=== PATIENT | female | born 1965 | race American Indian/Alaskan Native ===

== ENCOUNTER 2019-02-18 06:31 | Day surgery (SDC) | payer OTHER ==
[2019-02-18] MEDS ORDERED: NACL 0.9% 1000 ML 1,000 ML IV SCH (07:00)
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
--- NOTE | 2019-02-18 08:07 | Anesthesia Day of Surgery ---
Anesthesia Day of Surgery - Day of Surgery Patient Examined: Yes Patient H&P Reviewed: Yes Patient is NPO: Yes
[2019-02-18] MEDS ORDERED: WATER FOR IRRIG STERILE ONE (08:57)
[2019-02-18] MEDS ORDERED: WATER FOR IRRIG STERILE IR ONE (08:57)
[2019-02-18] MEDS ORDERED: XYLOCAINE MPF 2% ONE (09:00)
[2019-02-18] MEDS ORDERED: DIPRIVAN 10 MG/ML IV ONE ×2 (09:03)
--- NOTE | 2019-02-18 09:26 | Procedure Note ---
Date of procedure: 02/18/19 Pre-op diagnosis: Colon Polyp Screening Post-op diagnosis: other (Normal Colon Mucosa (No Colon Polyp or Diverticular Disease noted)/Minor,Internal Hemorrhoid) Procedure: Colonoscopy Anesthesia: MAC Surgeon: SIMÓN VALADEZ Estimated blood loss: none Pathology: none Condition: stable Disposition: same day (Resume home medication; follow up in 1 to 2 weeks ([phone]).)
[2019-02-18 10:02] VITALS: BP 145/92
--- NOTE | 2019-02-18 10:04 | Operative Report ---
PROCEDURE: Colonoscopy. INDICATIONS: This is a 53-year-old -[place] female who because of her age is having a colonoscopy done as part of colon polyp screening. She has previously never had a colonoscopy done. DETAILS OF PROCEDURE: The procedure was done after getting informed consent with MAC anesthesia. Initial rectal exam was unremarkable. Instrument was passed through the rectum onto the cecum, which was identified with ileocecal valve and the appendiceal orifice. Visualization was fair to good. Cecum was also looked at on the retroverted view, which did not show any additional pathology. The scope was then straightened and withdrawn up to the hepatic flexure and reintroduced and no additional pathology was noted. The cecum, ascending colon, transverse colon, descending colon, and sigmoid showed normal mucosa. There were no polyps noted. No diverticular disease noted and there was minor internal hemorrhoid noted on the retroverted view. There was no bleeding associated with the procedure. No complications associated with the procedure. ASSESSMENT: Colon polyp screening normal colon. No colon polyps or diverticula noted. Minor internal hemorrhoid. The procedure was done in the GI lab with assistance of the GI lab team, which included Vianney RECINOS and Anitra up and with the assistance of anesthesia. The patient will be asked to resume home medication. Follow up in the office in 1-2 weeks' time. JOB# [id number] LIZZY/CASSIA
--- NOTE | 2019-02-18 13:57 | Post Anesthesia Evaluation ---
- Post Anesthesia Evaluation Patient Participated: Yes Airway Patent: Yes Stable Respiratory Function: Yes Nausea/Vomiting: No Temp > 96.8F: Yes Pain Manageable: Yes Adequeate Hydration: Yes Anesthesia Complications: No Block Receding Appropriately: Not Applicable Patient on Ventilator: No
== END 2019-02-18 06:32 | disposition home or self-care (01) ==
LOC: GIO 06:31
DX: Z12.11 Encounter for screening for malignant neoplasm of colon (principal); K64.8 Other hemorrhoids; I10 Essential (primary) hypertension; G47.30 Sleep apnea, unspecified; E66.9 Obesity, unspecified; Z90.710 Acquired absence of both cervix and uterus; Z72.89 Other problems related to lifestyle; Z79.899 Other long term (current) drug therapy; Z88.2 Allergy status to sulfonamides; Z98.891 History of uterine scar from previous surgery; Z98.890 Other specified postprocedural states; Z68.36 Body mass index [BMI] 36.0-36.9, adult
CPT/HCPCS: J2704; J7030